=== PATIENT | female | born 1990 | race Caucasian/White ===

== ENCOUNTER 2021-08-10 23:54 | Emergency (ER) | payer OTHER ==
[2021-08-11] MEDS ORDERED: IBUPROFEN600 MG PO (01:29)
== END 2021-08-11 02:00 | disposition home or self-care (01) ==
LOC: ER1 23:54
DX: M54.5 Low back pain (principal); R51.9 Headache, unspecified; F17.200 Nicotine dependence, unspecified, uncomplicated
CPT/HCPCS: 72100; 99284